=== PATIENT | female | born 1985 | race Caucasian/White ===

== ENCOUNTER → 2017-01-20 | Outpatient (CLI) | payer OTHER ==
[~2017-01-20] MED LIST: ALBUTEROL0.83 MG/ML IH; ALBUTEROL17 GM; ALBUTEROL17 GM INH; ALPRAZOLAM; ALPRAZOLAM PO; AMBIEN; AMBIEN PO; AMBIEN10 MG PO; AMOXICILLIN PO; AMOXICILLIN500 M1 PO; AMOXICILLIN875 MG PO; ANTIVERT PO; ANUSOL-HC SUPP25 MG PR; ASMANEX0.24 G3 IH; ATIVAN; ATIVAN PO; AUGMENTIN PO; AURALGAN EAR DR14 ML OT; AURALGAN OTIC S10 ML AD; BUSPAR PO; CIPRO PO; DICLOFENAC PO; DICYCLOMINE HCL20 MG PO; ENDOCET 5-3251 EACH PO; FAMOTIDINE PO; FLEXERIL10 MG PO; HYDROCODON-ACE1 EAC7 PO; HYDROCODONE-APA1 T41 PO; HYDROCODONE-GU480 ML PO; IBUPROFEN600 MG PO; IMODIUM2 MG PO; KEFLEX500 M1; KEFLEX500 M1 PO; LOMOTIL TABLET1 TAB PO; LORTAB 10/500 T1 TAB PO; LORTAB 2.5/5001 TAB PO; LORTAB 5/500 TA1 TA1; LORTAB 5/500 TA1 TA1 PO; MACROBID100 MG PO; MEDI-MECLIZINE25 M1 PO; MEDROL DOSEPAK4 MG DOB; MEDROL DOSEPAK4 MG PO; MEDROL4 MG/DOSE- PO; METFORMIN PO; METOPROLOL TAR25 MG PO; NAPROSYN125 MG/5 M PO; NAPROXEN PO; OMEPRAZOLE40 MG PO; ORUDIS75 M1 PO; OXYCODON HCL-1 UDTAB PO; OXYCODON-ACETA1 EACH PO; OXYCODONE-APAP1 EACH PO; PEN-VEE K PO; PERCOCET; PERCOCET 5-3251 TAB PO; PERCOCET PO; PERCOCET10 PO; PERCOCET5/325 PO; PHENERGAN PO; PHENERGAN25 MG PO; PREDNISONE; PREDNISONE PO; PRENATAL W/FOLI1 TA1 PO; PROCTOFOAM-HC F10 GM PR; QVAR7.3 G1 IH; RISPERDAL1 M1 PO; RISPERDAL2 MG PO; ROBAXIN 750750 MG PO; RONDEC-DM SYRU120 ML PO; SEROQUEL; SILVADENE TOP; SKELAXIN PO; TOPAMAX; TYLOX 5-500 CA1 EACH PO; TYLOX 5/500 CAP1 CAP PO; ULTRAM PO; VICODIN PO; VISTARIL PO; VOLTAREN50 MG PO; VOLTAREN75 MG PO; XANAX0.5 MG PO; XANAX1 MG PO; XANAX2 MG PO; ZANAFLEX; ZITHROMAX PO; ZITHROMAX1 G/PKT PO; ZOFRAN ODT4 MG PO; ZYRTEC-D TABLE1 EACH PO; ZYRTEC10 M2 PO; [UNRECOGNIZED DRUG - OTHER] PO
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
== END | disposition home or self-care (01) ==
LOC: SMRI 17:52
DX: M54.5 Low back pain (principal); M51.36 Other intervertebral disc degeneration, lumbar region
CPT/HCPCS: 72148